=== PATIENT | male | born 1945 | race Caucasian/White ===

== ENCOUNTER 2022-11-15 05:45 | Observation (INO) ==
--- NOTE | 2022-10-17 14:59 | PAT Medication Instructions ---
Medication Instructions Date of Service October 17, 2022 Home Medications cholecalciferol (vitamin D3) 25 mcg (1,000 unit) chewable tablet (Vitamin D3) 25 mcg PO TID duloxetine 60 mg capsule,delayed release 60 mg PO HS mirtazapine 30 mg tablet 30 mg PO HS DO NOT take the morning of surgery cholecalciferol (vitamin D3) 25 mcg (1,000 unit) chewable tablet (Vitamin D3) 25 mcg PO TID Take evening before surgery cholecalciferol (vitamin D3) 25 mcg (1,000 unit) chewable tablet (Vitamin D3) 25 mcg PO TID duloxetine 60 mg capsule,delayed release 60 mg PO HS mirtazapine 30 mg tablet 30 mg PO HS Other Notes NOTHING TO EAT OR DRINK AFTER MIDNIGHT. If you have any questions please call us at [phone] or [phone] or or [phone]
--- NOTE | 2022-10-26 10:28 | Anesthesiology Consultation ---
Date of Service October 26, 2022 Assessment & Plan (1) Encounter for pre-operative examination: - COVID screening: Per assessment on 10/26: No known COVID-19 positive contacts or current COVID-19 related symptoms. No recent Covid positive test result. - PCP note (10/03/22): "From an internal medicine standpoint, I think he is optimized for surgery." Chart Review Chart Review: Acceptable Risk for Surgery and Patient seen in Pre Admission Testing Teaching & Discussion Pre-Anesthesia Teaching/Discussion Notes: Instructed NPO after midnight before surgery,except medications with 15 cc of water. Medication instructions provided according to the PAT guidelines. History Surgery Operation Date: 11/15/22 07:15 Proposed Procedures p L4-L5 Lumbar Decompression - Abelino Calloway MD Height/Weight Height: 5 ft 8 in Weight: 71.7 kg Allergies Allergy/AdvReac Type Severity Reaction Status Date / Time Iodinated Contrast Media Allergy Intermediate Hives Verified 10/26/22 09:50 Medications Home Medications Medication Instructions Recorded Confirmed Last Taken cholecalciferol (vitamin D3) 25 25 mcg PO TID 10/10/22 10/10/22 Unknown mcg (1,000 unit) chewable tablet (Vitamin D3) duloxetine 60 mg capsule,delayed 60 mg PO HS 10/10/22 10/10/22 Unknown release mirtazapine 30 mg tablet 30 mg PO HS 10/10/22 10/10/22 Unknown lisinopril 10 mg tablet 10 mg PO HS 10/26/22 10/26/22 Unknown Past Medical History Medical History Anemia "Mild" Balance problem "Mild" (no cane or walker) BPH (benign prostatic hyperplasia) Depression DJD (degenerative joint disease), lumbar Elevated BP without diagnosis of hypertension PCP started patient on lisinopril, patient monitoring home BPs closely (120s/70s per patient) Hearing loss History of COVID-19 2 years ago, not hospitalized Lower extremity weakness R/t severe back pain Lumbar stenosis with neurogenic claudication Osteoarthritis Exercise / Class Metabolic Activity III < 4 Walking/Shop/Light housework Past Surgical History Surgical History History of appendectomy History of cholecystectomy History of fusion of cervical spine No ROM limitations per patient History of tonsillectomy History of tooth extraction History of total knee replacement R/L Hx of total shoulder replacement left Past Anesthesia History No Hx of Anesthesia Complications and No Family Hx of Anesthesia Complications History of PONV No Hx of Motion Sickness and History of PONV (post-op nausea*) Social History Smoking Status: Never smoker Do You Dip or Chew Tobacco: No Hx Alcohol Use: No Hx Substance Use: No substance use type: does not use Review of Systems Patient denies chest pain, shortness of breath, fever, chills, cough, wheezing, palpitations. Physical Exam Vital Signs VITALS BP 161/83 (monitored closely at home- home BPs 120s/70s per patient) P 67 TEMP 98.0 SP02 98%RA RESP 16 PHYSICAL Decreased cervical extension range of motion. Full TMJ range of motion. TMD 3 finger breaths Mallampati Score 2 Dentition: full dentures upper/lower Lungs: clear throughout to auscultation Cardiac: regular rate and rhythm, no murmurs noted Spine: normal Carotid arteries: negative bruit Extremities: no LE edema Lab Results Anesthesia Preop Results Results Anesthesia Widget: PT 11.0 Seconds (9.0-12.0) 10/26/22 PTT 28.5 Seconds (21.0-31.0) 10/26/22 INR 1.0 (0.9-1.1) 10/26/22 Blood Type O Positive 10/26/22 Antibody Screen NEGATIVE 10/26/22 Testing Laboratory Results 09/29/22 WBC 8.1 H/H 12.4/40.2 PLATELETS 305 SODIUM 141 POTASSIUM 4.3 CHLORIDE 107 CO2 23 BUN 28 CREATININE 1.0 GLUCOSE 88 TSH 3.00 Electrocardiogram Date: 10/26/22 NSR at 62bpm.
[2022-11-15] MEDS ORDERED: LR 15ML/HR IV SCH (06:00)
[2022-11-15] MEDS ORDERED: ceFAZolin 2000MG 2,000 MG/15 ML SYR IV SCH (06:00)
[2022-11-15] MEDS ORDERED: LR 60ML/HR IV SCH (06:00)
[2022-11-15] MEDS ORDERED: PROMETHAZINE HCL 6.25 MG in SODIUM CHLORIDE 0.9% 50 ML IV STA (06:42)
--- NOTE | 2022-11-15 06:58 | History & Physical Bridge Note ---
Date of Service November 15, 2022 History & Physical Bridge Note I have examined the patient, reviewed the History & Physical and in the interval since the performance of the History & Physical I have noted the following changes of clinical significance: no changes noted
[2022-11-15] MEDS ORDERED: MIDAZOLAM HCL 1 MG/ML 2ML VIAL ONE (07:01)
[2022-11-15] MEDS ORDERED: DEXAMETHASONE SOD INJ 4 MG/ML VIAL ONE (07:01)
[2022-11-15] MEDS ORDERED: LIDOCAINE 2% 2 ML VIAL/AMP(20MG/ML) INFIL ONE (07:01)
[2022-11-15] MEDS ORDERED: PROPOFOL IV EMULSION 10 MG/ML 20 ML VIAL IV ONE ×2 (07:01→09:36)
[2022-11-15] MEDS ORDERED: ONDANSETRON INJ 2 MG/ML 2 ML VIAL ONE (07:01)
--- NOTE | 2022-11-15 07:01 | History & Physical Report ---
Date of Service November 15, 2022 History of Present Illness Chief Complaint: Low back pain Primary Care Provider: [facility] 77-year-old male referred here for weakness in the lower extremities. Patient reports that he has been relatively healthy through his life with no significant physician visits up until a few years ago when he got COVID twice. He reports in the last year he has developed a combination of lower extremity weakness where he does not feel as strong walking or going up and down stairs. He also relates at times being somewhat unbalanced and urinary urgency. Patient also reports a few incidents of bowel incontinence but this was about a month ago and has not had that since. She reports a limited amount of back pain and some numbness below his knees bilaterally and lower extremities. He has some upper extremity numbness and pain usually in the morning involving the long finger and ring finger more so on the right side. He has not undergone any other specific treatments. Exam reveals patient to be nontender lower lumbar spine, he can raise up on toes and heels without any obvious weakness. While sitting he has hyperreflexia for both knees, absent for the ankles, intact EHL strength negative straight leg raise bilaterally. Upper extremity exam reveals 0 to trace reflexes for biceps and brachioradialis bilaterally but hyperreflexia for triceps bilateral. 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 4 views lumbar spine AP lateral flexion-extension views taken for today's office reveals the patient to have relatively normal alignment, but degenerative changes throughout the spine with hip joint spaces maintained. The lateral view can be seen the patient has grade 1 anterolisthesis of L5 on S1, approximately 3 mm, but retrolisthesis the remaining lumbar levels, all levels having notable disc degeneration. No instability seen on flexion-extension. 4 views of the cervical spine taken for today's office reveals a cervical spine to have prior fusion at C4-5 and C5-6 and what appears to be autofusion at C3-4, degenerative changes at C2-3 and also at C6-7 and C7-T1 with some limited degenerative spondylolisthesis at both those last 2 levels. This changes slightly on flexion extension Review of MRI images of the lumbar spine from the [facility] in [place] from August 11, 2022 reveals the multilevel degenerative changes throughout the lumbar spine going into the lower thoracic spine, the spine is visualized up to the inferior aspect of T9. There is a disc protrusion centrally at T10-11 I cause some narrowing of the canal indeterminate if there is any signal intensity change. There is retrolisthesis at all the levels as noted previously and her radiographs, the most significant area of stenosis is centrally at L4-5, severe. It is more moderate at L2-3 and mild at the remaining levels. There is some foraminal stenosis noted moderate in range at L4-5 and L5-S1 with significant facet changes at all levels. Impression: Combination of lower extremity symptoms which include weakness, nu mbness and also balance issues with changes as noted in both the cervical and lumbar spine, lumbar stenosis L4-5. Plan: Lumbar decompression Allergies Allergy/AdvReac Type Severity Reaction Status Date / Time Iodinated Contrast Media Allergy Intermediate Hives Verified 11/15/22 05:58 Home Medications Medication Instructions Recorded Confirmed Type cholecalciferol (vitamin D3) 25 25 mcg PO TID 10/10/22 11/15/22 History mcg (1,000 unit) chewable tablet (Vitamin D3) duloxetine 60 mg capsule,delayed 60 mg PO HS 10/10/22 11/15/22 History release mirtazapine 30 mg tablet 30 mg PO HS 10/10/22 11/15/22 History lisinopril 10 mg tablet 10 mg PO HS 10/26/22 11/15/22 History Past Med/Surg History Medical History Anemia "Mild" Balance problem "Mild" (no cane or walker) BPH (benign prostatic hyperplasia) Depression DJD (degenerative joint disease), lumbar Elevated BP without diagnosis of hypertension PCP started patient on lisinopril, patient monitoring home BPs closely (120s/70s per patient) Hearing loss History of COVID-19 2 years ago, not hospitalized Lower extremity weakness R/t severe back pain Lumbar stenosis with neurogenic claudication Osteoarthritis Surgical History History of appendectomy History of cholecystectomy History of fusion of cervical spine No ROM limitations per patient History of tonsillectomy History of tooth extraction History of total knee replacement R/L Hx of total shoulder replacement left Social History Smoking Status: Never smoker Second Hand Exposure: No; Do You Dip or Chew Tobacco: No; Tobacco Cessation Education Requested by Patient: No Hx Alcohol Use: No Hx Substance Use: No Preferred Language: Czech Communication Ability: Effective Check Processing Clerk Required: No Beliefs That Will Affect Care: None Current Living Situation: Parent Other Information That Helps Us Care for You: No Feels Safe at Home: Yes Safety Concerns: Feels Safe At This Time Assistive Devices: Denture - Upper, Denture - Lower, Glasses and Hearing Aid - Bilateral Results & Data Results & Data Vital Signs (Past 12 Hours) Vital Signs Temp Pulse Resp BP Pulse Ox O2 Del Method 11/15/22 05:55 36.6 C 74 20 159/89 H 97 Room Air
[2022-11-15] MEDS ORDERED: fentaNYL citrate PF 100 MCG/2 ML VIAL ONE ×2 (07:02→09:36)
[2022-11-15] MEDS ORDERED: KETAMINE 50 MG/5 ML SYRINGE ONE (07:02)
[2022-11-15] MEDS ORDERED: ROCURONIUM BROMIDE 10 MG/ML 5 ML VIAL IV ONE (07:05)
[2022-11-15] MEDS ORDERED: ATROPINE SULFATE 0.1 MG/ML 10ML SYR IV PRN (07:08)
[2022-11-15] MEDS ORDERED: ONDANSETRON INJ 2 MG/ML 2 ML VIAL IV PRN ×2 (07:08→12:13)
[2022-11-15] MEDS ORDERED: REMIFENTANIL HCL 1 MG VIAL IV ONE (07:08)
[2022-11-15] MEDS ORDERED: ePHEDrine sulfate 50 MG/ML AMP IV PRN (07:08)
[2022-11-15] MEDS ORDERED: BUPIVACAINE LIPOSOME 1.3% 266 MG/20 ML VIAL ONE (07:22)
[2022-11-15] MEDS ORDERED: THROMBIN 5000 UNITS KIT ONE (07:22)
[2022-11-15] MEDS ORDERED: BUPIVACAINE 0.5 % 5 MG/1 ML MPF 30ML VIAL ONE (07:22)
[2022-11-15] MEDS ORDERED: GELATIN SPONGE 12-7MM ONE (07:22)
[2022-11-15] MEDS ORDERED: VANCOMYCIN HCL 1000MG/20ML VIAL ONE (07:22)
[2022-11-15] MEDS ORDERED: APREPITANT 40 MG CAP PO SCH (09:00)
[2022-11-15] MEDS ORDERED: EPINEPHrine INJ 1 MG/ML AMP ONE (09:14)
[2022-11-15] MEDS ORDERED: GLYCOPYRROLATE 0.2 MG/ML VIAL ONE (09:48)
[2022-11-15] MEDS ORDERED: NEOSTIGMINE METHYLSULFATE 1 MG/ML 10ML VIAL ONE (09:48)
[2022-11-15] MEDS ORDERED: KETOROLAC 30 MG/ML VIAL ONE (09:57)
--- NOTE | 2022-11-15 10:14 | Post Operative Brief Note ---
PG Immediate Post Op with CF Date of Surgery November 15, 2022 Pre & Post Diagnosis Operation Date: 11/15/22 07:15 Pre-Op Diagnosis: Retrolisthesis of vertebrae with lumbar stenosis Post-Op Diagnosis: Retrolisthesis of vertebrae with lumbar stenosis I identified the patient and participated in the time-out.: Yes Procedure Operation Date: 11/15/22 07:15 Actual Procedures p L4-L5 Lumbar Decompression(Not Applicable) - Abelino Calloway MD Surgeon Abelino Calloway MD Sas Analyst none Estimated Blood Loss 30 Findings Consistent with Post-Op Diagnosis Specimens Specimen Description: No specimen per surgeon
--- NOTE | 2022-11-15 10:43 | Anesthesiology Progress Note ---
Date of Service November 15, 2022 Anesthesia Post Procedure Vital Signs Vital Signs: Temp Pulse Pulse Resp BP Pulse Ox O2 Del Method 11/15/22 10:35 95 H 12 154/80 H 100 Oxymask 11/15/22 10:25 108 H 14 162/87 H 100 Oxymask 11/15/22 10:15 98.2 F 108 H 16 155/78 H 99 Oxymask 11/15/22 05:55 97.9 F 74 20 159/89 H 97 Room Air O2 Flow Rate 11/15/22 10:35 3 11/15/22 10:25 5 11/15/22 10:15 5 11/15/22 05:55 Transfer of Care Handoff Completed per policy Notes Mental Status: alert / awake / arousable and participated in evaluation Patient Amnestic to Procedure: Yes Nausea / Vomiting: adequately controlled Pain: adequately controlled Airway Patency, RR, SpO2: stable & adequate BP & HR: stable & adequate Hydration State: stable & adequate Anesthetic Complications: no major complications apparent and Pt Satisfied with anesthetic care
--- NOTE | 2022-11-15 11:19 | Fluoroscopy Report ---
INTRAOPERATIVE RADIOGRAPH CLINICAL HISTORY: L4-L5 lumbar decompression. Fluoro time: 20 seconds Ka,r: 10.27 mGy FINDINGS: A single spot fluoroscopic view of the lumbar spine is presented. Surgical instruments proj ect posteriorly at L4-L5. IMPRESSION: Intraoperative image of the lumbar spine as above. Electronically signed by: Kel Contreras M.D. 11/15/2022 11:18 AM
[2022-11-15] MEDS: HYDROmorphone INJ 1 MG/ML SYRINGE IV PRN ×2 (11:22→11:27)
[2022-11-15] MEDS ORDERED: NALOXONE HCL 0.4 MG/1 ML VIAL/CARP IV PRN (12:13)
[2022-11-15] MEDS ORDERED: LORazepam 0.5 MG TAB PO PRN (12:13)
[2022-11-15] MEDS ORDERED: FAMOTIDINE 20 MG TAB PO PRN (12:13)
[2022-11-15] MEDS ORDERED: DO NOT ADMINISTER FLU VACCINE PRN (12:13)
[2022-11-15] MEDS ORDERED: ONDANSETRON 4 MG OD TAB PO PRN (12:13)
[2022-11-15] MEDS ORDERED: hydrOXYzine HCl 25 MG TAB PO PRN (12:13)
[2022-11-15] MEDS ORDERED: diphenhydrAMINE Capsule 25 MG CAP PO PRN (12:13)
[2022-11-15] MEDS ORDERED: DO NOT ADMINISTER PNEUMOCOCCAL VACCINE PRN (12:13)
[2022-11-15] MEDS ORDERED: ACETAMINOPHEN 1,000 MG/100 ML VIAL IV PRN (12:13)
[2022-11-15] MEDS ORDERED: MAGNESIUM HYDROXIDE SUSP 30 ML UDC PO PRN (12:13)
[2022-11-15] MEDS ORDERED: bisacodyL 10 MG SUPP PR PRN (12:13)
[2022-11-15] MEDS ORDERED: PROMETHAZINE HCL 12.5 MG in SODIUM CHLORIDE 0.9% 50 ML IV PRN (12:13)
[2022-11-15] MEDS ORDERED: LORazepam 2 MG/1 ML VIAL IV PRN (12:13)
[2022-11-15] MEDS ORDERED: ALUMINUM/MAGNESIUM SUSP 30 ML UDC PO PRN (12:13)
[2022-11-15] MEDS ORDERED: ACETAMINOPHEN 500 MG TAB PO PRN (12:13)
[2022-11-15] MEDS ORDERED: METOCLOPRAMIDE HCL INJ 5 MG/ML 2 ML VIAL IV PRN (12:13)
[2022-11-15] MEDS ORDERED: SOD PHOSPHATE/SOD BIPHOSPHATE ENEMA 132 ML BTL PR PRN (12:13)
[2022-11-15] MEDS ORDERED: HYDROmorphone INJ 0.5 MG/0.5 ML SYR ONE (12:15)
[2022-11-15] MEDS: HYDROmorphone INJ 0.5 MG/0.5 ML SYR IV PRN ×2 (12:16→20:11)
[2022-11-15] MEDS: LACTATED RINGER'S 1,000 ML IV SCH (14:07)
[2022-11-15] MEDS: ceFAZolin 1000MG 1,000 MG/7.5 ML SYR IV SCH (16:40)
[2022-11-15] MEDS: oxyCODONE/ACETAMINOPHEN 5mg/325mg TAB PO PRN (18:14)
[2022-11-15] MEDS ORDERED: lisinopril 10 MG TAB PO SCH (21:00)
[2022-11-15] MEDS ORDERED: DULoxetine HCL 60 MG CAP PO SCH (21:00)
[2022-11-15] MEDS ORDERED: MIRTAZAPINE TAB 15 MG TAB PO SCH (21:00)
[2022-11-15] MEDS ORDERED: DOCUSATE SODIUM/SENNA 50/8.6MG TAB PO SCH (21:00)
[2022-11-16] MEDS: ceFAZolin 1000MG 1,000 MG/7.5 ML SYR IV SCH (00:11)
[2022-11-16] MEDS: LACTATED RINGER'S 1,000 ML IV SCH (02:01)
[2022-11-16] MEDS: POLYETHYLENE (MIRALAX) 17 GM PACK PO SCH ×2 (06:09→11:20)
[2022-11-16] MEDS: oxyCODONE/ACETAMINOPHEN 5mg/325mg TAB PO PRN ×2 (07:19→12:31)
--- NOTE | 2022-11-16 07:53 | Orthopedic Progress Note ---
Date of Service November 16, 2022 Subjective . Post op day one L4-5 decompression. Patient reports that he has improved sensation in his lower extremities, some incisional pain. Incision site with some minimal drainage, no other new findings, motor intact Impression/plan: Patient is 1 day status post L4-5 decompression and doing well, will be discharged to home following evaluation and clearance from physical therapy and medicine with follow-up in 2 weeks. Review of Systems All systems reviewed & are unremarkable except as noted in HPI & below. Physical Exam . Results & Data Results & Data Laboratory Results . Diagnostic Findings . PG Care Time/CCT Total # of Minutes Spent Total Time Spent with Patient: Total time spent is greater than 50% in coordination of care (as documented) at patient's floor/unit and/or counseling patient: Coding Level of Care Code 37346 Post Operative Follow-Up Diagnoses
--- NOTE | 2022-11-16 11:01 | Operative Report ---
PG Post Operative Report Pre & Post Diagnosis Operation Date: 11/15/22 07:15 Pre-Op Diagnosis: Retrolisthesis of vertebrae with lumbar stenosis Post-Op Diagnosis: Retrolisthesis of vertebrae with lumbar stenosis I identified the patient and participated in the time-out.: Yes Procedure Operation Date: 11/15/22 07:15 Actual Procedures p L4-L5 Lumbar Decompression(Not Applicable) - Abelino Calloway MD Surgeon Abelino Calloway MD High School Sports Coach none Estimated Blood Loss 30 Findings Consistent with Post-Op Diagnosis Specimens none Description of Procedure After adequate anesthesia the patient was placed on the Laci frame in the prone position. the lumbar region underwent preprep followed by bringing in fluoroscopy where I marked for the approximate location for the incision. After prepping and draping, midline incision was made over the L4-5 level followed by then dissection down on either side of the spinous processes to the interlaminar region of L4-5 confirmed fluoroscopically. We then mobilized the tissues in and around the interlaminar region across the superior laminar edge of L5 inferior laminar edge of L4 and over the facets. I then used a rongeur to remove the inferior aspect of the spinous process of L4 and continued down to the interlaminar region. From here the thickened ligamentum flavum along with the facet arthrosis was located I then used a high-speed bur to perform bilateral medial facetectomies, and across the inferior laminar edge of L4 and across the superior lamina edge of L5. The exposed thickened ligamentum flavum was then thinned and then removed, I used the Kerrison punches to undercut the remaining lamina side in the facets removing the thickend ligamentum flavum. This process was continued bilaterally until the complete decompression was performed, I then applied some thrombin-soaked Gelfoam to this region, the operative site was irrigated, I then injected local anesthetic followed by then vancomycin powder in the incision area was closed with an 0 Vicryl sutures reattaching the supraspinous ligament were available followed by 2-0 Vicryl sutures and angel for the skin. Sterile dressing was applied, patient tolerated procedure well was taken recovery room satisfied condition. I attest to the content of the Intraoperative Record and any orders documented therein. Any exceptions are noted below.
--- NOTE | 2022-11-16 11:04 | Discharge Summary ---
Date of Service November 16, 2022 Admission HPI (Per Admitting) Lumbar stenosis Principal Diagnosis Same as "Discharge Diagnosis" noted below under Discharge Instructions. Discharge Exam . Discharge Data Consultations 11/15/22 12:13 Consult Hospitalist Routine Procedures Performed Operation Date: 11/15/22 07:15 Actual Procedures p L4-L5 Lumbar Decompression(Not Applicable) - Abelino Calloway MD Ordered Studies 11/15/22 [place] spine 1V any level Routine Hospital Course (1) Lumbar stenosis with neurogenic claudication: Plan Discharge home with follow-up in 2 weeks. PG Care Time/CCT Total # of Minutes Spent Total Time Spent with Patient: Total time spent is greater than 50% in coordination of care (as documented) at patient's floor/unit and/or counseling patient: Discharge Plan Discharge Items Patient Disposition: Home - Self-Care Reason For Visit: Retrolisthesis of Vertebrae, Lumbar Stenosis with Discharge Diagnosis: Lumbar stenosis Activity: Resume your previous activity Lifting: No more than 10 pounds Bathing: May shower/bathe in 3 days Driving/Machine Use: Resume 3 days after discharge Weightbearing: Full weightbearing Non-emergency contact: Surgeon Call non-emergency contact if: your pain is worsening Follow-up/Referrals: [facility] [Primary Care Provider] - Diet: Regular Addtl Attending Provider Instructions: Follow-up in 2 weeks Pending Studies at Discharge: No Stand-Alone Forms: [employer], Pain - Opioid Pain Management, Smoking Cessation Medications and DC Order Prescriptions: New hydrocodone-acetaminophen 5-325 mg tablet 1 tab PO Q6H PRN (Reason: pain) Qty: 20 0RF Continued mirtazapine 30 mg Tablet 30 mg PO HS duloxetine 60 mg Capsule,Delayed Release(Dr/Ec) 60 mg PO HS cholecalciferol (vitamin D3) [Vitamin D3] 25 mcg (1,000 unit) Tablet,Chewable 25 mcg PO TID lisinopril 10 mg Tablet 10 mg PO HS Discharge Orders: Discharge Order (Routine); Ordered 11/16/22 Ordered By: Abelino Trimble/Other Patient Handouts: DVT Complications, DVT Post Op Prevention Admission Data Admit Date/Time: 11/15/22 10:34 Attending Provider: Abelino Calloway Admit Provider: Abelino Calloway Primary Care Provider: [facility] Other Providers: Samm Iyer ; Mayra Jeffrey ; Dante Chaves ; William Blood ; Chava Davis ; Vern Gayle ; Kel Nicholson ; Evon Whaley ; Ju Licea ; Mikey Bright ; Jinny Smith ; Zafar Seymour ; Harmony Fenton ; Javier Tafoya ; Ravin Aleman ; Mayra Montana ; Saida Rivas ; Albaro Aden ; Dante Dodd ; Ky Murphy ; Lizbeth Minaya ; Mike Shook ; Charo Bryant ; Holden Younger ; Phoebe Dangelo ; Cortney Caceres ; Uvaldo Wilson ; Randa Jonas ; Brian Grossman ; William Benjamin ; Chava Santiago ; [facility] Other Interventions: Discharge Summary Assessment (RN) Last Done: 11/16/22 10:44
--- NOTE | 2022-11-16 12:22 | Hospitalist Consultation ---
Date of Consultation November 16, 2022 Assessment & Plan (1) Lumbar stenosis with neurogenic claudication: (2) BPH (benign prostatic hyperplasia): resume home meds. History of Present Illness Attending Physician: Abelino Calloway MD Allergies Allergy/AdvReac Type Severity Reaction Status Date / Time Iodinated Contrast Media Allergy Intermediate Hives Verified 11/15/22 05:58 Home Medications Medication Instructions Recorded Confirmed Type cholecalciferol (vitamin D3) 25 25 mcg PO TID 10/10/22 11/15/22 History mcg (1,000 unit) chewable tablet (Vitamin D3) duloxetine 60 mg capsule,delayed 60 mg PO HS 10/10/22 11/15/22 History release mirtazapine 30 mg tablet 30 mg PO HS 10/10/22 11/15/22 History lisinopril 10 mg tablet 10 mg PO HS 10/26/22 11/15/22 History hydrocodone 5 mg-acetaminophen 325 1 tab PO Q6H PRN pain #20 tabs 11/16/22 11/16/22 Rx mg tablet Patient History Medical History (Updated 11/16/22 @ 12:15 by Osmel Morley) Anemia "Mild" Balance problem "Mild" (no cane or walker) BPH (benign prostatic hyperplasia) Depression DJD (degenerative joint disease), lumbar Elevated BP without diagnosis of hypertension PCP started patient on lisinopril, patient monitoring home BPs closely (120 s/70s per patient) Hearing loss History of COVID-19 2 years ago, not hospitalized Lower extremity weakness R/t severe back pain Lumbar stenosis with neurogenic claudication Osteoarthritis Surgical History History of appendectomy History of cholecystectomy History of fusion of cervical spine No ROM limitations per patient History of tonsillectomy History of tooth extraction History of total knee replacement R/L Hx of total shoulder replacement left Social History Smoking Status: Never smoker Second Hand Exposure: No; Do You Dip or Chew Tobacco: No; Tobacco Cessation Education Requested by Patient: No Hx Alcohol Use: No Hx Substance Use: No Preferred Language: Nigerian Communication Ability: Effective Exploitation Analyst Required: No Beliefs That Will Affect Care: None Current Living Situation: Parent Other Information That Helps Us Care for You: No Feels Safe at Home: Yes Safety Concerns: Feels Safe At This Time Assistive Devices: None Results & Data Results & Data Vital Signs (Past 12 Hours) Vital Signs Temp Pulse Resp BP Pulse Ox O2 Del Method 11/16/22 07:14 36.4 C L 60 17 125/79 94 Room Air 11/16/22 06:12 76 95 Room Air 11/16/22 02:21 36.4 C L 52 L 16 117/65 98 Room Air PG Care Time/CCT Total # of Minutes Spent Total Time Spent with Patient: Total time spent is greater than 50% in coordination of care (as documented) at patient's floor/unit and/or counseling patient: Coding Diagnoses Lumbar stenosis with neurogenic claudication M48.062 BPH (benign prostatic hyperplasia) N40.0
[2022-11-16] MEDS ORDERED: lisinopril 10 MG TAB PO SCH (21:00)
== END 2022-11-16 13:17 | disposition home or self-care (01) ==
LOC: ASU 05:45 → INTOOBSV 10:34 → PACUINP 10:34 → 3E 13:41